=== PATIENT | male | born 1980 | race Caucasian/White ===

== ENCOUNTER → 2023-05-22 11:00 | Outpatient (CLI) | payer OTHER, SELFPAY ==
[2023-05-22 19:16] LABS: Add Manual Diff / Slide Review NO; Basophils Absolute Auto 100 /uL (0-100); Basophils Percent Auto 0.7 % (0-2); Eosinophils Absolute Auto 100 /uL (0-450); Eosinophils Percent Auto 1.3 % (2-4); Hematocrit 43.1 % (41-53); Hemoglobin 14.8 g/dL (13.5-17.5); Lymphocytes Absolute Auto 1800 /uL (1100-4500); Mean Corpuscular HGB Conc 34.3 % (30-36); Mean Corpuscular Hemoglobin 31.2 PG (26-34); Monocytes Absolute Auto 800 /uL (0-900); Monocytes Percent Auto 8.6 % (3-14); Neutrophils Absolute Auto 5900 /uL (1500-7000); Neutrophils Percent Auto 68.4 % (50-75); Platelet Count 208 X10^3/uL (150-400); Red Blood Cell Count 4.74 X10^6/uL (4.5-5.9); Red Cell Distribution Width 12.8 % (11.6-14.8); White Blood Cell Count 8.7 X10^3/uL (4.5-11.0)
[2023-05-22 19:23] LABS: Hemoglobin A1C% w Est Avg Glu 5.2 % (4.0-6.0)
[2023-05-22 19:30] LABS: Alanine Aminotransferase 22 IU/L (<50); Albumin 4.4 g/dL (3.5-5.0); Albumin Globulin Ratio 1.7 (1.0-2.8); Alkaline Phosphatase 76 U/L (38-126); Aspartate Aminotransferase 23 IU/L (17-59); BUN Creatinine Ratio 17.3 (6-22); Bilirubin Total 0.5 mg/dL (0.2-1.3); Blood Urea Nitrogen 9 mg/dL (9-20); Calcium 10.4 mg/dL (8.4-10.2); Carbon Dioxide 23 mmol/L (22-32); Chloride 106 mmol/L (98-107); Cholesterol 138 mg/dL (140-199); Estimated Glomerular Filt Rate > 60 mL/min (>60); Globulin 2.6 g/dL (1.7-4.1); Glucose 104 mg/dL (70-100); HDL Cholesterol 44 mg/dL (40-60); HEMOLYSIS 18 (0-50); LDL Cholesterol Calculated 87 mg/dL (<100); Potassium 4.2 mmol/L (3.4-5.1); Sodium 140 mmol/L (137-145); Triglycerides 37 mg/dL (35-150)
[2023-05-22 19:46] LABS: TSH w/ Reflex to FT4 1.56 uIU/mL (0.47-4.68)
== END ==
PROVIDERS: PCP Family Medicine; Visit Provider Family Medicine
DX: R35.89 Other polyuria (principal); R63.1 Polydipsia; Z13.1 Encounter for screening for diabetes mellitus; Z13.6 Encounter for screening for cardiovascular disorders
CPT/HCPCS: 80053; 80061; 83036; 84443; 85025

== ENCOUNTER → 2023-06-06 09:02 | Outpatient (CLI) | payer OTHER, SELFPAY ==
[2023-06-08 20:17] LABS: Osmolality Urine 314 mOsmol/kg (.)
== END ==
PROVIDERS: PCP Family Medicine; Visit Provider Family Medicine
DX: E83.52 Hypercalcemia (principal); R63.1 Polydipsia; R35.89 Other polyuria
CPT/HCPCS: 83935

== ENCOUNTER → 2023-06-12 11:14 | Outpatient (CLI) | payer OTHER, SELFPAY ==
[2023-06-12 19:23] LABS: Vitamin D 25 Hydroxy (D3) 48.4 ng/mL (30.0-100.0)
[2023-06-14 19:07] LABS: Free Kappa Lt Chains, Serum 11.9 mg/L (3.3-19.4); Free Lambda Lt Chains,Serum 7.9 mg/L (5.7-26.3)
[2023-06-15 07:54] LABS: Calcium 10.2 mg/dL (8.7-10.2); Parathyroid Hormone, Intact 58 pg/mL (15-65)
[2023-06-15 14:25] LABS: Albumin 4.1 g/dL (2.9-4.4); Alpha-1-Globulin 0.2 g/dL (0.0-0.4); Alpha-2-Globulin 0.6 g/dL (0.4-1.0); Gamma Globulin 0.8 g/dL (0.4-1.8); Globulin Total 2.6 g/dL (2.2-3.9); Protein, Total 6.7 g/dL (6.0-8.5)
== END ==
PROVIDERS: PCP Family Medicine; Visit Provider Family Medicine
DX: E83.52 Hypercalcemia (principal); R35.89 Other polyuria; R63.1 Polydipsia; G62.9 Polyneuropathy, unspecified
CPT/HCPCS: 82306; 82310; 83883; 83970; 84155; 84165

== ENCOUNTER → 2023-07-02 09:10 | Outpatient (CLI) | payer OTHER, SELFPAY ==
[2023-07-02 20:02] LABS: Collection Time Urine 24 Hours; Creatinine 24 Hour Urine 1427 mg/day (1000-2000); Creatinine Urine Random 34.8 mg/dL; Potassium 24 Hour Urine 65 mmol/day (25-125); Potassium Urine Random 15.8 mmol/L; Sodium 24 Hour Urine 160 mmol/day (40-220); Sodium Urine Random 39 mmol/L (30-90); Total Volume Urine 4100 mL; Urea Nitrogen 24 Hour Urine 11 g/DAY (12-20); Urea Nitrogen,Urine Random 265 mg/dL
== END ==
PROVIDERS: PCP Family Medicine; Visit Provider Family Medicine
DX: R35.89 Other polyuria (principal)
CPT/HCPCS: 82570; 84133; 84300; 84540